=== PATIENT | female | born 1955 | race Hispanic/Latino ===

== ENCOUNTER → 2017-11-24 | Outpatient (CLI) | payer OTHER ==
[~2017-11-24] MED LIST: LORAZEPAM2 MG PO
--- NOTE | 2017-11-24 14:08 | Diagnostic Imaging Report ---
PROCEDURE:PELVIC ULTRASOUND COMPARISON:None. INDICATIONS:Epigastric and right upper quadrant pain with irritable bowel syndrome and constipation. TECHNIQUE: [place] scale color Doppler ultrasound FINDINGS: The patient is status post hysterectomy. Ovaries are inconspicuous. No free pelvic fluid. CONCLUSION: No acute abnormality. Hysterectomy with inconspicuous ovaries. Dictated by: Smith Vazquez M.D. on 11/24/2017 at 14:11 Electronically approved by: Smith Vazquez M.D. on 11/24/2017 at 14:11
--- NOTE | 2017-11-24 14:18 | Diagnostic Imaging Report ---
PROCEDURE:ABDOMINAL ULTRASOUND COMPARISON:None. INDICATIONS:EPIGASTRIC PAIN/RUQ PAIN/IBS W/ CONSTIPATION FINDINGS: Liver: 12.2 cm. Increased hepatic parenchymal echogenicity. No focal mass. Main portal vein: 0.7 cm. Hepatopedal flow. Gallbladder: 0.7 cm polyp. No wall thickening. Common Bile Duct: 0.4 cm. No echogenic filling defect. Sonographic Aranda's sign: Negative. Right kidney: 9.4 cm. No hydronephrosis. 0.5 cm inferior pole echogenic focus, likely a calculus .Normal parenchymal echogenicity. Left kidney: 10.4 cm. No hydronephrosis. 1 cm exophytic superior pole cyst. Normal parenchymal echogenicity. Spleen: 9 cm. Pancreas: The visualized portions of the pancreas are normal. Inferior vena cava: Normal. Aorta: Severe atherosclerotic disease. Ascites: None. CONCLUSION: Hepatic steatosis. 0.7 cm gallbladder polyp. Recommend follow up in one year to ensure stability. 0.5 cm right renal nonobstructive calculus. Dictated by: Mark Cooley M.D. on 11/24/2017 at 14:21 Electronically approved by: Mark Cooley M.D. on 11/24/2017 at 14:21
== END ==
LOC: US 12:13
PROVIDERS: ATTEND Internal Medicine Gastroenterology
DX: R10.13 Epigastric pain (principal); R10.11 Right upper quadrant pain; K58.1 Irritable bowel syndrome with constipation; Z68.21 Body mass index [BMI] 21.0-21.9, adult
CPT/HCPCS: 76700; 76856

== ENCOUNTER → 2018-03-31 | Outpatient (CLI) | payer OTHER ==
[~2018-03-31] MED LIST changes: +SINCALIDE 3 MCG/VIAL INJ ONE
--- NOTE | 2018-03-31 16:18 | Diagnostic Imaging Report ---
Hepatobiliary Scan with Gallbladder Ejection Fraction Clinical information: Abdominal pain Report: Following intravenous administration of 6.9 millicuries of Tc-99m mebrofenin, dynamic images of the abdomen in the anterior projection were obtained through 30 minutes. Sincalide (CCK analog) 1.2 micrograms was administered intravenously over 30 minutes with additional imaging for determination of gallbladder ejection fraction. Perfusion to the liver is normal. Extraction of tracer from the blood pool by the liver parenchyma is normal. Tracer is seen promptly within the biliary tract. The gallbladder begins to fill by 5 minutes post-injection of tracer and fills adequately. Tracer is seen in the small bowel during the sincalide infusion. The gallbladder ejection fraction with administration of sincalide is 79% (normal greater than 40%). Impression: 1. Filling of the gallbladder excludes the diagnosis of acute cystic duct obstruction/acute cholecystitis. 2. Normal gallbladder ejection fraction of 79% does not support the clinical diagnosis of chronic cholecystitis/gallbladder dyskinesia. Signed by: Dr. Lisa Yeung M.D. on 03/31/2018 4:15 PM
== END ==
LOC: NM 07:42
PROVIDERS: ATTEND Internal Medicine Endocrinology, Diabetes & Metabolism
DX: K81.9 Cholecystitis, unspecified (principal)
CPT/HCPCS: 78227; A9537; J2805

== ENCOUNTER → 2018-09-28 | Outpatient (CLI) | payer OTHER ==
[~2018-09-28] MED LIST changes: -SINCALIDE 3 MCG/VIAL INJ ONE
--- NOTE | 2018-09-28 10:00 | Diagnostic Imaging Report ---
EXAM: US GALLBLADDER DATE: 09/28/2018 8:03 AM INDICATION: Gallbladder polyp COMPARISON: 11/24/2017 TECHNIQUE: Transverse and longitudinal hernandez scale and color doppler sonographic images of the upper abdomen were obtained. FINDINGS: LIVER 12.1 cm in the right midclavicular line. Increased echogenicity, normal contour, no masses. GALLBLADDER No stones, sludge, wall-thickening or pericholecystic fluid. Negative sonographic Aranda's sign. Stable appearance of lobulated polypoid lesion in the gallbladder lumen measuring 0.7 x 0.7 x 0.7 cm. BILE DUCTS No intra nor extra-hepatic biliary dilation. Common bile duct measures 0.2 cm PANCREAS: Visualized portions are normal. RIGHT KIDNEY: 10.4 cm Echogenicity: Normal Collecting System: No hydronephrosis Stones: Previously described echogenic calculus in the right kidney is not identified on the current examination. Cyst/Mass: None VESSELS: Aorta: Visualized portions are nonaneurysmal Inferior Vena Cava: Visualized portions are normal Main Portal Vein: 0.7 cm, normal size with hepatopetal flow. FREE FLUID: None IMPRESSION: Stable 7 mm gallbladder polyp relative to 11/24/2017. Continued annual surveillance ultrasound is suggested if interval cholecystectomy is not planned. Increased hepatic parenchymal echogenicity compatible with steatosis. Signed by: Dr. Segun Fitzpatrick M.D. on 09/28/2018 9:56 AM
== END ==
LOC: US 07:44
PROVIDERS: ATTEND Internal Medicine Endocrinology, Diabetes & Metabolism
DX: K82.4 Cholesterolosis of gallbladder (principal)
CPT/HCPCS: 76705

== ENCOUNTER → 2018-12-30 | Outpatient (CLI) | payer OTHER ==
--- NOTE | 2018-12-30 09:17 | Diagnostic Imaging Report ---
Left lower extremity ultrasound, 12/30/2018. History: Left knee pain, concern for popliteal cysts Discussion: Grayscale and color Doppler ultrasound was performed of the left lower extremity. There is no evidence of cyst or mass. Popliteal vein and artery are patent with visible color flow. IMPRESSION: No evidence of popliteal cyst. Signed by: Zheng Iraheta on 12/30/2018 9:14 AM
--- NOTE | 2018-12-30 09:18 | Diagnostic Imaging Report ---
Left knee, 3 views. History: Posterior left knee pain. Findings: Standing views were obtained. The soft tissues are normal. Bone mineralization is normal. There is no evidence of fracture or dislocation. There are no lytic or sclerotic lesions. The joint spaces are within normal limits. IMPRESSION: Normal left knee. Signed by: Zheng Iraheta on 12/30/2018 9:15 AM
== END ==
LOC: US 07:45
PROVIDERS: ATTEND Internal Medicine Endocrinology, Diabetes & Metabolism
DX: M25.562 Pain in left knee (principal); M25.462 Effusion, left knee; M13.862 Other specified arthritis, left knee
CPT/HCPCS: 76882

== ENCOUNTER → 2019-12-12 | Outpatient (CLI) | payer OTHER ==
--- NOTE | 2019-12-12 10:26 | Diagnostic Imaging Report ---
EXAM: US ABDOMEN COMPLETE DATE: 12/12/2019 7:22 AM INDICATION: Gallbladder polyp COMPARISON: Right upper quadrant ultrasound from 09/28/2018 FINDINGS: The visualized pancreas is unremarkable. The liver is normal in size measuring 11.7 cm in length. Hepatic echogenicity is mildly increased suggestive of fatty infiltration. No focal hepatic abnormality is identified. The main portal vein is patent with antegrade flow and diameter of 0.7 cm, within normal limits. Again identified is a 7 mm lobulated polyp within the lumen of the gallbladder, unchanged from prior examination. There is no evidence for shadowing stones, wall thickening, or pericholecystic fluid. There is no intra or extra hepatic biliary ductal dilatation. The common bile duct measures 3 mm. Sonographic Aranda sign is negative. The spleen is normal in size measuring 8.9 cm in length and demonstrates an unremarkable sonographic appearance. The kidneys are normal in size measuring 9.7 cm in length on the right and 9.8 cm in length on the left with normal cortical thickness and echogenicity. There is no evidence for solid renal mass, hydronephrosis, or shadowing calculi. The visualized portions the IVC and aorta are within normal limits. There is no ascites visualized. IMPRESSION: Stable 7 mm gallbladder polyp, unchanged in size/appearance for prior examinations dating back to 11/24/2017. Sonographic findings suggestive of hepatic steatosis. Signed by: Dr. Yo Trevino MD on 12/12/2019 10:23 AM
== END ==
LOC: US 07:07
PROVIDERS: ATTEND Internal Medicine Gastroenterology
DX: K58.9 Irritable bowel syndrome, unspecified (principal); K59.00 Constipation, unspecified; K82.4 Cholesterolosis of gallbladder; Z68.22 Body mass index [BMI] 22.0-22.9, adult
CPT/HCPCS: 76700

== ENCOUNTER 2021-05-10 23:00 | Emergency (ER) | payer BC, OTHER ==
[~2021-05-10] VITALS: Ht 157.5 cm; Wt 77.1 kg
[2021-05-10] MEDS ORDERED: Morphine 4mg Syringe 4 MG/ML INJ IV ONE (23:30)
[2021-05-10] MEDS ORDERED: ONDANSETRON HCL INJ 2MG/ML 2ML 2 MG/ML VIAL ONE (23:35)
[2021-05-10] MEDS ORDERED: ONDANSETRON HCL INJ 2MG/ML 2ML 2 MG/ML VIAL IV STA (23:36)
[2021-05-11] MEDS ORDERED: HYDROCODONE/APAP 10MG-325MG TAB PO ONE (00:30)
[2021-05-11] MEDS ORDERED: DOCUSATE SODIU100 MG PO (00:34)
[2021-05-11] MEDS ORDERED: HYDROCODON-ACE1 EAC9 PO (00:34)
[2021-05-11] MEDS ORDERED: IBUPROFEN600 MG PO (00:34)
[2021-05-11] MEDS ORDERED: FENTANYL CITRATE/PF 100MCG/2 ML INJ IV ONE (00:45)
== END 2021-05-11 01:35 | disposition home or self-care (01) ==
LOC: ER 23:12
DX: S42.212A Unspecified displaced fracture of surgical neck of left humerus, initial encounter for closed fracture (principal); W06.XXXA Fall from bed, initial encounter; Y93.89 Activity, other specified; Y92.013 Bedroom of single-family (private) house as the place of occurrence of the external cause
CPT/HCPCS: 73030; 99283; J2270; J2405; J3010

== ENCOUNTER 2021-05-23 10:14 | Observation (INO) | payer BC, OTHER ==
[~2021-05-23] VITALS: Ht 157.5 cm; Wt 77.1 kg
[~2021-05-23 10:14] MED LIST changes: +CARVEDILOL12.5 MG PO; +DOCUSATE SODIU100 MG PO; +HYDROCODON-ACE1 EAC9 PO; +IBUPROFEN600 MG PO
[2021-05-23] MEDS ORDERED: MIRALAX17 GM PO (11:13)
[2021-05-23] MEDS ORDERED: SODIUM CHLORIDE 0.9% 50ML 100 ML ONE (11:30)
[2021-05-23] MEDS ORDERED: SEVOFLURANE INHAL SOLN 250 ML PEN BTL ONE (11:57)
[2021-05-23] MEDS ORDERED: LIDOCAINE HCL 2% LOCAL INJ 5 ML SDV VIAL INJ ONE (11:57)
[2021-05-23] MEDS ORDERED: GLYCOPYRROLATE INJ 0.2 MG/ML VIAL ONE (11:57)
[2021-05-23] MEDS ORDERED: KETOROLAC TROMETHAMINE 30 MG/ML VIAL ONE (11:57)
[2021-05-23] MEDS ORDERED: POVIDONE IODINE 0.05% 0.05 % ML PO ONE (11:57)
[2021-05-23] MEDS ORDERED: DEXAMETHASONE SOD PHOS INJ 4 MG/ML SDV ONE (11:57)
[2021-05-23] MEDS ORDERED: PROPOFOL IV EMULSION 10 MG/ML 20 ML VIAL ONE (11:57)
[2021-05-23] MEDS ORDERED: NEOSTIGMINE 1 MG/ML 10ML VIAL ONE (11:57)
[2021-05-23] MEDS ORDERED: ROCURONIUM BROMIDE 10 MG/ML 5ML VIAL IV ONE (11:57)
[2021-05-23] MEDS ORDERED: ONDANSETRON HCL INJ 2MG/ML 2ML 2 MG/ML VIAL ONE (11:57)
[2021-05-23] MEDS ORDERED: FENTANYL CITRATE/PF 100MCG/2 ML INJ ONE ×2 (12:52→18:09)
[2021-05-23] MEDS ORDERED: MIDAZOLAM HCL 2 MG/2 ML VIAL ONE (12:52)
[2021-05-23] MEDS ORDERED: ACETAMINOPHEN 1000 MG/100 ML 100 ML IV ONE (15:50)
[2021-05-23] MEDS ORDERED: Vancomycin IV 500 MG ONE (17:11)
[2021-05-23] MEDS ORDERED: BUPIVACAINE HCL 0.5% INJ 30 ML VIAL INJ ONE (17:11)
[2021-05-23] MEDS ORDERED: HYDROCODONE/APAP 7.5MG-325MG 1 EA TAB PO PRN (18:00)
[2021-05-23] MEDS ORDERED: KETOROLAC TROMETHAMINE 30 MG/ML VIAL IV PRN (18:00)
[2021-05-23] MEDS ORDERED: HYDROCODONE/APAP 5MG-325MG TAB PO PRN (18:00)
[2021-05-23] MEDS ORDERED: MEPERIDINE HCL INJ 25 MG/ML VIAL ONE (18:44)
[2021-05-23 19:37] VITALS: BP 133/68
[2021-05-23 20:00] VITALS: BP 133/68
[2021-05-23 21:15] VITALS: BP 133/68
[2021-05-23] MEDS: ACETAMINOPHEN 1000 MG/100 ML IV SCH (21:35)
[2021-05-24] VITALS: BP 166/91
[2021-05-24 00:43] VITALS: BP 142/86
[2021-05-24] MEDS: ACETAMINOPHEN 1000 MG/100 ML IV SCH (03:25)
[2021-05-24 04:00] VITALS: BP 161/77
[2021-05-24 06:00] LABS: HEMATOCRIT 30.2 % (34.2-44.1)
[2021-05-24 07:41] VITALS: BP 134/88
[2021-05-24 08:10] VITALS: BP 134/88
[2021-05-24] MEDS ORDERED: ACETAMINOPHEN 1000 MG/100 ML IV PRN (22:00)
== END 2021-05-24 09:42 | disposition home or self-care (01) ==
LOC: OR 10:14 → MED/SURG 17:50
PROVIDERS: ADMIT Orthopaedic Surgery; ATTEND Orthopaedic Surgery
DX: S42.292A Other displaced fracture of upper end of left humerus, initial encounter for closed fracture (principal); F32.A Depression, unspecified; Z20.822 Contact with and (suspected) exposure to COVID-19; I10 Essential (primary) hypertension
CPT/HCPCS: 36415; 76000; 85014; 85018; 93005; G0378; J0690; J1100; J1885; J2001; J2175; J2250; J2405; J2710; J3010; J3370; J7050; U0002